=== PATIENT | female | born 1965 | race Caucasian/White ===

== ENCOUNTER → 2017-07-14 | Outpatient (CLI) | payer OTHER | END | disposition home or self-care (01) | LOC: RAD 12:14 | PROVIDERS: ATTEND Internal Medicine | DX: M23.221 Derangement of posterior horn of medial meniscus due to old tear or injury, right knee (principal); M25.461 Effusion, right knee; M71.21 Synovial cyst of popliteal space [Baker], right knee ==

== ENCOUNTER 2018-11-25 14:42 | Inpatient (IN) | payer OTHER ==
[~2018-11-25] VITALS: Ht 177.8 cm; Wt 116.5 kg
[2018-11-25] MEDS ORDERED: SODIUM CHLORIDE FLUSH 10ML SYR IVF ONE (15:00)
[2018-11-25] MEDS ORDERED: HYDROmorphone 1 MG/ML, 1ML VIAL ONE ×2 (15:30→17:36)
[2018-11-25] MEDS: HYDROmorphone 2 MG/ML, 1ML IVPush PRN ×2 (15:35→17:40)
[2018-11-25] MEDS ORDERED: LEVO200T5 PO (15:37)
[2018-11-25] MEDS ORDERED: LEVO25TA4 PO (15:38)
[2018-11-25] MEDS ORDERED: SERT50TA28 PO (15:39)
[2018-11-25] MEDS ORDERED: OXYC10TA6 PO (15:40)
[2018-11-25] MEDS ORDERED: IBUP-1484 PO (15:41)
[2018-11-25 15:47] LABS: BASOPHILS # (AUTO) 0.04 x10^3/uL (0-0.1); BASOPHILS % (AUTO) 0 % (0-1); EOSINOPHILS # (AUTO) 0.22 x10^3/uL (0-0.4); EOSINOPHILS % (AUTO) 2 % (1-7); LYMPHOCYTES # (AUTO) 2.19 x10^3/uL (1-3.4); LYMPHOCYTES % (AUTO) 15 % (22-44); MD NO; MEAN CORPUSCULAR HEMOGLOBIN 27.2 pg (27.0-34.8); MEAN CORPUSCULAR HGB CONC 33.3 g/dL (32.4-35.8); MEAN CORPUSCULAR VOLUME 81.7 fL (80-100); MEAN PLATELET VOLUME 9.8 fL (7.4-10.4); MONOCYTES # (AUTO) 0.97 x10^3/uL (0.2-0.8); MONOCYTES % (AUTO) 7 % (2-9); NEUTROPHILS # (AUTO) 10.93 x10^3/uL (1.8-6.8); NEUTROPHILS % (AUTO) 76 % (42-75); PLATELET COUNT 402 x10^3/uL (130-400); RED CELL DISTRIBUTION WIDTH 18.1 % (9.6-15.2)
[2018-11-25 15:56] LABS: ALANINE AMINOTRANSFERASE 16 U/L (12-78); ALBUMIN 3.5 g/dL (3.4-5.0); ANION GAP 7 mmol/L (5-15); CALCIUM 9.2 mg/dL (8.5-10.1); CHLORIDE 105 mmol/L (98-107); CREATININE 0.84 mg/dL (0.55-1.02)
[2018-11-25 15:58] LABS: ALKALINE PHOSPHATASE 95 U/L (45-117); BILIRUBIN,TOTAL 0.4 mg/dL (0.2-1.0); TOTAL PROTEIN 7.8 g/dL (6.4-8.2)
[2018-11-25 16:00] LABS: MICROSCOPIC INDICATED
[2018-11-25 16:06] LABS: CULTURE INDICATED? YES
[2018-11-25] MEDS ORDERED: AMPICILLIN/SULBACTAM 3 GM in SODIUM CHLORIDE 0.9% 100 ML IV ONE (16:30)
--- NOTE | 2018-11-25 19:00 | NUR ---
[facility] BEDSIDE HAND-OFF REPORT GIVEN TO NOAH RODRIGUEZ.
--- NOTE | 2018-11-25 19:01 | NUR ---
report received from clarita soliman.
--- NOTE | 2018-11-25 19:03 | NUR ---
ATTEMPTED TO CALL REPORT. NOC RN TO CALL BACK FOR REPORT.
--- NOTE | 2018-11-25 19:22 | NUR ---
report given to Brenden soliman. all questions answered.
[2018-11-25 19:37] VITALS: BP 122/79
[2018-11-25] MEDS ORDERED: ONDANSETRON 2MG/ML, 2ML IVPush PRN (20:00)
[2018-11-25] MEDS: SODIUM CHLORIDE 0.9% 1,000 ML IV SCH (20:06)
[2018-11-25] MEDS ORDERED: HYDROmorphone 1 MG/ML, 1ML INJ IV PRN ×2 (20:30)
[2018-11-25] MEDS: MEROPENEM 1 GM in SODIUM CHLORIDE 0.9% 100 ML IV SCH (20:53)
[2018-11-25] MEDS: ENOXAPARIN 40 MG/0.4 ML SQ SCH (20:57)
[2018-11-25] MEDS: HYDROmorphone 2 MG/ML, 1ML IV PRN (21:22)
[2018-11-26 00:02] VITALS: BP 106/69
[2018-11-26] MEDS: HYDROmorphone 2 MG/ML, 1ML IV PRN ×8 (00:35→23:49)
[2018-11-26] MEDS: SODIUM CHLORIDE 0.9% 1,000 ML IV SCH ×3 (03:30→19:46)
[2018-11-26] MEDS: MEROPENEM 1 GM in SODIUM CHLORIDE 0.9% 100 ML IV SCH ×3 (05:15→21:11)
[2018-11-26 05:49] LABS: BASOPHILS # (AUTO) 0.03 x10^3/uL (0-0.1); BASOPHILS % (AUTO) 0 % (0-1); CHLORIDE 111 mmol/L (98-107); EOSINOPHILS % (AUTO) 2 % (1-7); LYMPHOCYTES # (AUTO) 2.05 x10^3/uL (1-3.4); LYMPHOCYTES % (AUTO) 21 % (22-44); MD NO; MEAN CORPUSCULAR HEMOGLOBIN 26.6 pg (27.0-34.8); MEAN CORPUSCULAR HGB CONC 32.5 g/dL (32.4-35.8); MEAN CORPUSCULAR VOLUME 81.8 fL (80-100); MEAN PLATELET VOLUME 9.7 fL (7.4-10.4); MONOCYTES # (AUTO) 0.96 x10^3/uL (0.2-0.8); MONOCYTES % (AUTO) 10 % (2-9); NEUTROPHILS # (AUTO) 6.66 x10^3/uL (1.8-6.8); NEUTROPHILS % (AUTO) 67 % (42-75); PLATELET COUNT 324 x10^3/uL (130-400); RED BLOOD COUNT 4.49 x10^6/uL (3.82-5.3); RED CELL DISTRIBUTION WIDTH 17.5 % (9.6-15.2)
[2018-11-26 06:07] LABS: ALANINE AMINOTRANSFERASE 17 U/L (12-78); ALKALINE PHOSPHATASE 86 U/L (45-117); ANION GAP 8 mmol/L (5-15); BILIRUBIN,TOTAL 0.4 mg/dL (0.2-1.0); CALCIUM 8.7 mg/dL (8.5-10.1); CREATININE 0.52 mg/dL (0.55-1.02); TOTAL PROTEIN 6.5 g/dL (6.4-8.2)
[2018-11-26 07:10] VITALS: BP 127/78
[2018-11-26] MEDS: ENOXAPARIN 40 MG/0.4 ML SQ SCH ×2 (09:00→09:11)
[2018-11-26] MEDS: LEVOTHYROXINE 100 MCG INJ IVPush SCH (09:18)
[2018-11-26 14:00] VITALS: BP 124/76
[2018-11-26 18:59] VITALS: BP 106/71
[2018-11-27 00:28] VITALS: BP 129/86
[2018-11-27] MEDS: SODIUM CHLORIDE 0.9% 1,000 ML IV SCH ×2 (03:33→11:30)
[2018-11-27] MEDS: HYDROmorphone 2 MG/ML, 1ML IV PRN ×5 (04:29→20:04)
[2018-11-27] MEDS: MEROPENEM 1 GM in SODIUM CHLORIDE 0.9% 100 ML IV SCH ×3 (05:08→20:47)
[2018-11-27 08:21] VITALS: BP 136/88
[2018-11-27] MEDS: LEVOTHYROXINE 100 MCG INJ IVPush SCH (09:04)
[2018-11-27] MEDS: ENOXAPARIN 40 MG/0.4 ML SQ SCH (09:04)
[2018-11-27 13:39] VITALS: BP 117/77
[2018-11-27 19:57] VITALS: BP 128/84
[2018-11-28 00:34] VITALS: BP 142/97
[2018-11-28] MEDS: HYDROmorphone 2 MG/ML, 1ML IV PRN ×6 (00:34→21:21)
[2018-11-28] MEDS: MEROPENEM 1 GM in SODIUM CHLORIDE 0.9% 100 ML IV SCH ×3 (05:14→21:04)
[2018-11-28 06:01] LABS: BASOPHILS # (AUTO) 0.05 x10^3/uL (0-0.1); BASOPHILS % (AUTO) 1 % (0-1); EOSINOPHILS # (AUTO) 0.32 x10^3/uL (0-0.4); EOSINOPHILS % (AUTO) 3 % (1-7); LYMPHOCYTES # (AUTO) 2.11 x10^3/uL (1-3.4); LYMPHOCYTES % (AUTO) 22 % (22-44); MD NO; MEAN CORPUSCULAR HEMOGLOBIN 26.6 pg (27.0-34.8); MEAN CORPUSCULAR HGB CONC 32.7 g/dL (32.4-35.8); MEAN CORPUSCULAR VOLUME 81.3 fL (80-100); MEAN PLATELET VOLUME 9.7 fL (7.4-10.4); MONOCYTES # (AUTO) 0.79 x10^3/uL (0.2-0.8); MONOCYTES % (AUTO) 8 % (2-9); NEUTROPHILS # (AUTO) 6.25 x10^3/uL (1.8-6.8); NEUTROPHILS % (AUTO) 66 % (42-75); PLATELET COUNT 362 x10^3/uL (130-400); RED BLOOD COUNT 4.57 x10^6/uL (3.82-5.3); RED CELL DISTRIBUTION WIDTH 17.4 % (9.6-15.2)
[2018-11-28 06:34] VITALS: BP 123/86
[2018-11-28] MEDS: LEVOTHYROXINE 100 MCG INJ IVPush SCH (09:36)
[2018-11-28] MEDS: ENOXAPARIN 40 MG/0.4 ML SQ SCH (09:36)
[2018-11-28 14:00] VITALS: BP 130/77
[2018-11-28 18:36] VITALS: BP 136/92
[2018-11-29] MEDS: HYDROmorphone 2 MG/ML, 1ML IV PRN ×4 (00:55→14:28)
[2018-11-29 00:59] VITALS: BP 123/83
[2018-11-29] MEDS: MEROPENEM 1 GM in SODIUM CHLORIDE 0.9% 100 ML IV SCH ×2 (04:49→14:22)
[2018-11-29 07:07] VITALS: BP 125/78
[2018-11-29] MEDS: ENOXAPARIN 40 MG/0.4 ML SQ SCH (08:31)
[2018-11-29] MEDS: LEVOTHYROXINE 100 MCG INJ IVPush SCH (08:32)
[2018-11-29] MEDS ORDERED: OMNIPAQUE 350 MG/ML, 100ML BOTTLE ONE (10:33)
[2018-11-29 12:17] VITALS: BP 123/84
[2018-11-29] MEDS ORDERED: METR500T PO (16:17)
[2018-11-29] MEDS ORDERED: SULF1TAB24 PO (16:19)
== END 2018-11-29 16:30 | disposition home or self-care (01) | DRG 871 ==
LOC: ED 15:30 → EDIP 16:02 → 3NE 19:32 → DCLOUNGE 11-29 16:15
PROVIDERS: ADMIT Internal Medicine; ATTEND Internal Medicine
DX: A41.9 Sepsis, unspecified organism (principal); K65.1 Peritoneal abscess; E87.1 Hypo-osmolality and hyponatremia; K50.90 Crohn's disease, unspecified, without complications; E03.9 Hypothyroidism, unspecified; F17.200 Nicotine dependence, unspecified, uncomplicated; L40.50 Arthropathic psoriasis, unspecified; Z79.890 Hormone replacement therapy; Z90.49 Acquired absence of other specified parts of digestive tract
CPT/HCPCS: 36415; 74177; 80053; 81001; 83735; 84100; 85025; 87086; 96365; 96375; G0378; J0295; J1170; J1650; J2185; Q9967; J7030

== ENCOUNTER → 2018-11-25 | Outpatient (CLI) | payer OTHER ==
[~2018-11-25] MED LIST: IBUP-1484 PO; LEVO200T5 PO; LEVO25TA4 PO; METR500T PO; OXYC10TA6 PO; SERT50TA28 PO; SULF1TAB24 PO
== END | disposition home or self-care (01) ==
LOC: CFH 12:21
PROVIDERS: ATTEND Internal Medicine
DX: G89.18 Other acute postprocedural pain (principal)
CPT/HCPCS: 74176

== ENCOUNTER 2020-02-15 13:33 | Emergency (ER) | payer OTHER ==
[~2020-02-15] VITALS: Ht 180.3 cm; Wt 116.0 kg
[~2020-02-15 13:33] MED LIST changes: -IBUP-1484 PO; +IBUP-1902 PO
--- NOTE | 2020-02-15 13:51 | NUR ---
PT BIB [facility], PT WITH C/O 05/19 DIFFUSE ABD PAIN AND DIARRHEA SINCE 299 THIS AM. PT WITH HX CHRONS AND COLITITS. DENIES N/V
--- NOTE | 2020-02-15 14:24 | NUR ---
TASK RN: IVF HUNG. PT RESTING IN BED IN NAD, TEARFUL SECONDARY TO 8/10 ABDOMINAL 'CRAMPING'. ERP AWARE. AWAITING ORDERS
[2020-02-15] MEDS ORDERED: SODIUM CHLORIDE 0.9% 1,000ML IVBOLUS ONE (14:30)
[2020-02-15] MEDS ORDERED: SODIUM CHLORIDE FLUSH 10ML SYR IVF ONE (14:30)
[2020-02-15 14:45] LABS: BASOPHILS # (AUTO) 0.03 x10^3/uL (0-0.1); BASOPHILS % (AUTO) 0 % (0-1); EOSINOPHILS # (AUTO) 0.06 x10^3/uL (0-0.4); EOSINOPHILS % (AUTO) 0 % (1-7); LYMPHOCYTES # (AUTO) 0.58 x10^3/uL (1-3.4); LYMPHOCYTES % (AUTO) 4 % (22-44); MD NO; MEAN CORPUSCULAR HEMOGLOBIN 26.9 pg (27.0-34.8); MEAN CORPUSCULAR HGB CONC 31.9 g/dL (32.4-35.8); MEAN CORPUSCULAR VOLUME 84.3 fL (80-100); MEAN PLATELET VOLUME 9.2 fL (7.4-10.4); MONOCYTES # (AUTO) 0.47 x10^3/uL (0.2-0.8); MONOCYTES % (AUTO) 3 % (2-9); NEUTROPHILS # (AUTO) 14.74 x10^3/uL (1.8-6.8); NEUTROPHILS % (AUTO) 93 % (42-75); PLATELET COUNT 392 x10^3/uL (130-400); RED BLOOD COUNT 5.05 x10^6/uL (3.82-5.3); RED CELL DISTRIBUTION WIDTH 16.9 % (9.6-15.2)
[2020-02-15 14:54] LABS: ALANINE AMINOTRANSFERASE 38 U/L (12-78); ALBUMIN 3.2 g/dL (3.4-5.0); ANION GAP 6 mmol/L (5-15); CALCIUM 8.8 mg/dL (8.5-10.1); CHLORIDE 112 mmol/L (98-107); CREATININE 0.73 mg/dL (0.55-1.02)
[2020-02-15 14:56] LABS: ALKALINE PHOSPHATASE 114 U/L (45-117); BILIRUBIN,TOTAL 0.5 mg/dL (0.2-1.0); TOTAL PROTEIN 7.6 g/dL (6.4-8.2)
[2020-02-15] MEDS ORDERED: HYDROmorphone 1 MG/ML, 1ML INJ IV ONE (15:00)
[2020-02-15] MEDS ORDERED: HYDROmorphone 2 MG/ML, 1ML ONE (15:01)
--- NOTE | 2020-02-15 15:08 | NUR ---
ORDER RECIEVED FOR DILAUDED PER PT REQUEST, PT MEDICATED PER MAR, VSS
[2020-02-15 15:29] LABS: MICROSCOPIC NOT IND
[2020-02-15] MEDS ORDERED: OMNIPAQUE 350 MG/ML, 100ML BOTTLE ONE (15:33)
--- NOTE | 2020-02-15 15:36 | NUR ---
PT BACK FROM CT AT THIS TIME
[2020-02-15 16:06] LABS: CLOSTRIDIUM DIFFICILE ANTIGEN NEGATIVE; CLOSTRIDIUM DIFFICILE TOXIN NEGATIVE (Negative)
--- NOTE | 2020-02-15 17:13 | NUR ---
PT UP TO BR AT THIS TIME, PT WITH STEADY GAIT
[2020-02-15 18:02] VITALS: BP 121/83
== END 2020-02-15 18:40 | disposition home or self-care (01) ==
LOC: ED 13:49
DX: K50.10 Crohn's disease of large intestine without complications (principal); D72.829 Elevated white blood cell count, unspecified; R10.84 Generalized abdominal pain; I10 Essential (primary) hypertension; Z90.49 Acquired absence of other specified parts of digestive tract
CPT/HCPCS: 36415; 74177; 80053; 81003; 83605; 83690; 85025; 87324; 89055; 93005; 96374; 99285; J1170; J7030; Q9967

== ENCOUNTER 2021-01-27 02:18 | Inpatient (IN) | payer MEDICAID, OTHER ==
[~2021-01-27] VITALS: Ht 180.3 cm; Wt 128.5 kg
[~2021-01-27 02:18] MED LIST changes: +SULF-23 PO; -SULF1TAB24 PO
[2021-01-27] MEDS ORDERED: HYDROmorphone 1 MG/ML, 1ML INJ IV ONE (04:00)
[2021-01-27] MEDS ORDERED: ONDANSETRON 2MG/ML, 2ML IVPush ONE (04:00)
[2021-01-27] MEDS ORDERED: SODIUM CHLORIDE FLUSH 10ML SYR IVF ONE ×2 (04:00)
[2021-01-27] MEDS ORDERED: ONDANSETRON 2MG/ML, 2ML ONE (04:08)
[2021-01-27] MEDS ORDERED: HYDROmorphone 1 MG/ML, 1ML INJ ONE ×2 (04:08→06:21)
--- NOTE | 2021-01-27 04:15 | NUR ---
PT PRESENTS TO THE ED WITH PAIN IN PINKY TOE. PT HAS HAD THIS PAIN FOR SOME TIME, AND IS TO SEE A VASCULAR SURGERON, BUT HAS NOT SEEN THEM YET. PT NEEDS MRI FOR TOE. PT PLACED IN GOWN AND ON CONTINUOUS MONITORING, 20 G IV TO RIGHT AC, ERP AT BEDSIDE.
--- NOTE | 2021-01-27 04:15 | NUR ---
PAIN MEDS GIVEN, PT RESTING ON GURNEY, DENIES NEEDS AT THIS TIME.
[2021-01-27 04:18] LABS: BASOPHILS % (AUTO) 1 % (0-1); EOSINOPHILS % (AUTO) 1 % (1-7); LYMPHOCYTES % (AUTO) 26 % (22-44); MEAN CORPUSCULAR HEMOGLOBIN 28.6 pg (27.0-34.8); MEAN CORPUSCULAR HGB CONC 33.6 g/dL (32.4-35.8); MEAN PLATELET VOLUME 9.4 fL (7.4-10.4); MONOCYTES % (AUTO) 9 % (2-9); NEUTROPHILS % (AUTO) 62 % (42-75); PLATELET COUNT 322 x10^3/uL (130-400); RED BLOOD COUNT 4.76 x10^6/uL (3.82-5.3); RED CELL DISTRIBUTION WIDTH 16.6 % (9.6-15.2)
[2021-01-27 04:30] LABS: ALANINE AMINOTRANSFERASE 19 U/L (12-78); ALBUMIN 3.4 g/dL (3.4-5.0); ANION GAP 9 mmol/L (5-15); CALCIUM 9.1 mg/dL (8.5-10.1); CHLORIDE 105 mmol/L (98-107); CREATININE 0.78 mg/dL (0.55-1.02)
[2021-01-27 04:32] LABS: ALKALINE PHOSPHATASE 98 U/L (45-117); BILIRUBIN,TOTAL 0.3 mg/dL (0.2-1.0); TOTAL PROTEIN 7.5 g/dL (6.4-8.2)
--- NOTE | 2021-01-27 05:20 | NUR ---
PT UP TO BATHROOM
--- NOTE | 2021-01-27 05:22 | NUR ---
PT BACK TO ROOM, STEADY GAIT
[2021-01-27] MEDS ORDERED: LOSA100T14 PO (05:41)
[2021-01-27] MEDS ORDERED: OMEP-110 PO (05:41)
--- NOTE | 2021-01-27 05:47 | NUR ---
PT THINKING ABOUT STAY INPATIENT TO HAVE MRI AND PAIN MANAGEMENT
[2021-01-27] MEDS ORDERED: HYDROmorphone 2 MG/ML, 1ML IVPush PRN (06:30)
--- NOTE | 2021-01-27 07:04 | NUR ---
Pt to be admitted to MEDICAL, room 338. Report called to NOAH HAWKINS.
[2021-01-27] MEDS ORDERED: BISACODYL 10 MG SUPP PR PRN (08:30)
[2021-01-27] MEDS ORDERED: ACETAMINOPHEN 325 MG TABLET PO PRN (08:30)
[2021-01-27] MEDS ORDERED: ONDANSETRON ODT 4 MG PO PRN (08:30)
[2021-01-27] MEDS ORDERED: hydrALAzine 20 MG/ML, 1ML IVPush PRN (08:30)
[2021-01-27] MEDS ORDERED: ONDANSETRON 2MG/ML, 2ML IVPush PRN (08:30)
[2021-01-27] MEDS ORDERED: PROMETHAZINE 25 MG/ML, 1ML IM PRN (08:30)
[2021-01-27] MEDS ORDERED: morphine SULFATE 10 MG/ML, 1ML IVPush PRN (08:30)
[2021-01-27] MEDS ORDERED: DOCUSATE 100 MG CAPSULE PO PRN (08:30)
[2021-01-27] MEDS ORDERED: POLYETHYLENE GLYCOL 17 GM PACKET PO PRN (08:30)
[2021-01-27 08:33] VITALS: BP 151/96
[2021-01-27] MEDS: HEPARIN 5,000 UNITS/ML, 1ML SQ SCH ×2 (08:53→17:24)
[2021-01-27] MEDS: OXYcodone IR 5MG TABLET PO PRN (10:17)
[2021-01-27] MEDS: SODIUM CHLORIDE 0.9% 1,000 ML IV SCH (11:56)
[2021-01-27] MEDS ORDERED: ZOLPIDEM 5MG TABLET PO PRN (12:30)
[2021-01-27 13:15] VITALS: BP 113/73
[2021-01-27] MEDS: HYDROmorphone 2 MG/ML, 1ML IVPush PRN ×3 (13:24→20:30)
[2021-01-27] MEDS ORDERED: GADOTERATE 7.5 MMOL/15ML SYR ONE (15:46)
[2021-01-27] MEDS ORDERED: GADOTERATE 5 MMOL/10ML SYR ONE (15:46)
[2021-01-27 19:13] VITALS: BP 107/71
[2021-01-28] MEDS: HYDROmorphone 2 MG/ML, 1ML IVPush PRN ×7 (00:10→21:30)
[2021-01-28] MEDS: HEPARIN 5,000 UNITS/ML, 1ML SQ SCH ×3 (00:22→16:15)
[2021-01-28 00:33] VITALS: BP 123/82
[2021-01-28] MEDS: SODIUM CHLORIDE 0.9% 1,000 ML IV SCH (01:00)
[2021-01-28 05:36] LABS: BASOPHILS % (AUTO) 1 % (0-1); EOSINOPHILS % (AUTO) 2 % (1-7); LYMPHOCYTES % (AUTO) 28 % (22-44); MEAN CORPUSCULAR HEMOGLOBIN 28.7 pg (27.0-34.8); MEAN PLATELET VOLUME 9.4 fL (7.4-10.4); MONOCYTES % (AUTO) 8 % (2-9); NEUTROPHILS % (AUTO) 61 % (42-75); PLATELET COUNT 293 x10^3/uL (130-400); RED BLOOD COUNT 4.39 x10^6/uL (3.82-5.3); RED CELL DISTRIBUTION WIDTH 16.2 % (9.6-15.2)
[2021-01-28 05:46] LABS: CHLORIDE 109 mmol/L (98-107)
[2021-01-28] MEDS: LEVOTHYROXINE 25 MCG TABLET PO SCH (05:49)
[2021-01-28] MEDS: LEVOTHYROXINE 200 MCG TABLET PO SCH (05:49)
[2021-01-28 06:02] LABS: ALANINE AMINOTRANSFERASE 16 U/L (12-78); ALBUMIN 2.9 g/dL (3.4-5.0); ALKALINE PHOSPHATASE 83 U/L (45-117); ANION GAP 6 mmol/L (5-15); BILIRUBIN,TOTAL 0.2 mg/dL (0.2-1.0); CALCIUM 8.6 mg/dL (8.5-10.1); CHOL/HDL RATIO 4.1; CHOLESTEROL, TOTAL 157 mg/dL (140-239); CREATININE 0.63 mg/dL (0.55-1.02); HDL CHOL % 24 % (28-40); HDL CHOLESTEROL (DIRECT) 38 mg/dL (40-60); LDL CHOLESTEROL,CALCULATED 89 mg/dL (54-169); LDL/HDL RATIO 2.3 (0.5-3.0); TOTAL PROTEIN 6.6 g/dL (6.4-8.2); TRIGLYCERIDES 152 mg/dL (50-200); VLDL CHOLESTEROL 30 mg/dL (0-25)
[2021-01-28 06:50] VITALS: BP 149/90
[2021-01-28] MEDS: LOSARTAN 100 MG TAB PO SCH (08:13)
[2021-01-28] MEDS: OMEPRAZOLE 20 MG CAPSULE.DR PO SCH (08:13)
[2021-01-28] MEDS: SERTRALINE 50MG TABLET PO SCH (08:13)
[2021-01-28 13:21] VITALS: BP 115/72
[2021-01-28] MEDS ORDERED: OMNIPAQUE 350 MG/ML, 150 ML BOTTLE ONE (18:01)
[2021-01-28 18:52] VITALS: BP 105/75
[2021-01-28] MEDS: OXYcodone IR 5MG TABLET PO PRN (23:41)
[2021-01-29] MEDS: HYDROmorphone 2 MG/ML, 1ML IVPush PRN ×6 (00:36→19:12)
[2021-01-29] MEDS: HEPARIN 5,000 UNITS/ML, 1ML SQ SCH ×3 (00:36→16:06)
[2021-01-29 01:07] VITALS: BP 108/74
[2021-01-29] MEDS: LEVOTHYROXINE 200 MCG TABLET PO SCH (05:10)
[2021-01-29] MEDS: LEVOTHYROXINE 25 MCG TABLET PO SCH (05:11)
[2021-01-29 07:05] VITALS: BP 114/77
[2021-01-29] MEDS: OMEPRAZOLE 20 MG CAPSULE.DR PO SCH (08:07)
[2021-01-29] MEDS: LOSARTAN 100 MG TAB PO SCH (08:07)
[2021-01-29] MEDS: SERTRALINE 50MG TABLET PO SCH (08:07)
[2021-01-29 13:21] VITALS: BP 105/68
[2021-01-29 19:03] VITALS: BP 100/68
[2021-01-29] MEDS: OXYcodone IR 5MG TABLET PO PRN (21:33)
[2021-01-30] MEDS: HYDROmorphone 2 MG/ML, 1ML IVPush PRN ×6 (00:12→20:34)
[2021-01-30] MEDS: HEPARIN 5,000 UNITS/ML, 1ML SQ SCH ×3 (00:12→17:15)
[2021-01-30 00:28] VITALS: BP 121/85
[2021-01-30 05:18] LABS: BASOPHILS % (AUTO) 1 % (0-1); EOSINOPHILS % (AUTO) 2 % (1-7); LYMPHOCYTES % (AUTO) 29 % (22-44); MEAN CORPUSCULAR HEMOGLOBIN 28.4 pg (27.0-34.8); MEAN CORPUSCULAR HGB CONC 32.9 g/dL (32.4-35.8); MEAN PLATELET VOLUME 9.6 fL (7.4-10.4); MONOCYTES % (AUTO) 7 % (2-9); NEUTROPHILS % (AUTO) 61 % (42-75); PLATELET COUNT 337 x10^3/uL (130-400); RED BLOOD COUNT 4.66 x10^6/uL (3.82-5.3); RED CELL DISTRIBUTION WIDTH 16.4 % (9.6-15.2)
[2021-01-30 05:25] LABS: ALBUMIN 3.2 g/dL (3.4-5.0); ANION GAP 7 mmol/L (5-15); CALCIUM 9.5 mg/dL (8.5-10.1); CHLORIDE 105 mmol/L (98-107)
[2021-01-30] MEDS: LEVOTHYROXINE 200 MCG TABLET PO SCH (05:27)
[2021-01-30] MEDS: LEVOTHYROXINE 25 MCG TABLET PO SCH (05:27)
[2021-01-30 05:30] LABS: ALANINE AMINOTRANSFERASE 21 U/L (12-78); ALKALINE PHOSPHATASE 89 U/L (45-117); BILIRUBIN,TOTAL 0.3 mg/dL (0.2-1.0); CREATININE 0.87 mg/dL (0.55-1.02); TOTAL PROTEIN 7.2 g/dL (6.4-8.2)
[2021-01-30 05:47] LABS: HCT (SEDRATE) 40.2 % (34.6-47.8)
[2021-01-30 06:36] VITALS: BP 131/77
[2021-01-30] MEDS: OMEPRAZOLE 20 MG CAPSULE.DR PO SCH (08:55)
[2021-01-30] MEDS: SERTRALINE 50MG TABLET PO SCH (08:55)
[2021-01-30] MEDS: LOSARTAN 100 MG TAB PO SCH (09:00)
[2021-01-30] MEDS: OXYcodone IR 5MG TABLET PO PRN ×3 (09:54→18:46)
[2021-01-30 13:14] VITALS: BP 101/68
[2021-01-30] MEDS: [UNRECOGNIZED DRUG - OTHER] OTIC SCH ×3 (14:19→23:31)
[2021-01-30 18:30] VITALS: BP 118/79
[2021-01-31 00:14] VITALS: BP 93/56
[2021-01-31] MEDS: HEPARIN 5,000 UNITS/ML, 1ML SQ SCH ×2 (00:19→09:19)
[2021-01-31] MEDS: HYDROmorphone 2 MG/ML, 1ML IVPush PRN ×4 (00:19→13:49)
[2021-01-31] MEDS: LEVOTHYROXINE 200 MCG TABLET PO SCH (05:18)
[2021-01-31] MEDS: LEVOTHYROXINE 25 MCG TABLET PO SCH (05:18)
[2021-01-31] MEDS: [UNRECOGNIZED DRUG - OTHER] OTIC SCH ×2 (05:18→11:34)
[2021-01-31 09:14] VITALS: BP 121/81
[2021-01-31] MEDS: OMEPRAZOLE 20 MG CAPSULE.DR PO SCH (09:16)
[2021-01-31] MEDS: SERTRALINE 50MG TABLET PO SCH (09:16)
[2021-01-31] MEDS: LOSARTAN 100 MG TAB PO SCH (09:16)
[2021-01-31 13:47] VITALS: BP 107/74
== END 2021-01-31 16:22 | disposition home or self-care (01) | DRG 300 ==
LOC: ED 06:59 → 3N 07:39 → EDIP 12:19 → ED 12:19 → 3N 12:43
PROVIDERS: ADMIT Internal Medicine; ATTEND Internal Medicine
DX: I70.221 Atherosclerosis of native arteries of extremities with rest pain, right leg (principal); K51.80 Other ulcerative colitis without complications; I10 Essential (primary) hypertension; E03.9 Hypothyroidism, unspecified; G89.29 Other chronic pain; M54.9 Dorsalgia, unspecified; Z90.49 Acquired absence of other specified parts of digestive tract; Z88.8 Allergy status to other drugs, medicaments and biological substances; Z79.899 Other long term (current) drug therapy
CPT/HCPCS: 36415; 71275; 75635; 80053; 80061; 83036; 83735; 84100; 84443; 85025; 85651; 93005; 93306; 93356; 93922; G0378; J1170; J1644; J2405; Q9967; A9575; J2270; J7030

== ENCOUNTER 2021-02-06 08:30 | Outpatient (CLI) | payer MEDICAID ==
[~2021-02-06 08:30] MED LIST changes: +LOSA100T14 PO; +OMEP-110 PO
== END 2021-02-06 23:59 | disposition home or self-care (01) ==
LOC: WOUND 08:30
PROVIDERS: ATTEND Internal Medicine
DX: I70.235 Atherosclerosis of native arteries of right leg with ulceration of other part of foot (principal); L97.512 Non-pressure chronic ulcer of other part of right foot with fat layer exposed; I10 Essential (primary) hypertension; E03.9 Hypothyroidism, unspecified; D84.9 Immunodeficiency, unspecified; I96 Gangrene, not elsewhere classified; K50.00 Crohn's disease of small intestine without complications; L40.50 Arthropathic psoriasis, unspecified; G89.29 Other chronic pain; M79.674 Pain in right toe(s); L40.0 Psoriasis vulgaris; F17.210 Nicotine dependence, cigarettes, uncomplicated; Z79.899 Other long term (current) drug therapy; Z90.49 Acquired absence of other specified parts of digestive tract; Z88.8 Allergy status to other drugs, medicaments and biological substances
CPT/HCPCS: 99215

== ENCOUNTER 2021-02-13 10:33 | Outpatient (CLI) | payer MEDICAID | END 2021-02-13 23:59 | disposition home or self-care (01) | LOC: WOUND 10:33 | PROVIDERS: ATTEND Internal Medicine | DX: I70.235 Atherosclerosis of native arteries of right leg with ulceration of other part of foot (principal); I70.261 Atherosclerosis of native arteries of extremities with gangrene, right leg; L97.512 Non-pressure chronic ulcer of other part of right foot with fat layer exposed; I10 Essential (primary) hypertension; E03.9 Hypothyroidism, unspecified; D84.9 Immunodeficiency, unspecified; K50.00 Crohn's disease of small intestine without complications; L40.50 Arthropathic psoriasis, unspecified; G89.29 Other chronic pain; L40.0 Psoriasis vulgaris; F17.210 Nicotine dependence, cigarettes, uncomplicated; Z79.899 Other long term (current) drug therapy; Z90.49 Acquired absence of other specified parts of digestive tract; Z88.8 Allergy status to other drugs, medicaments and biological substances | CPT/HCPCS: 99213 ==

== ENCOUNTER 2021-02-20 10:47 | Outpatient (CLI) | payer MEDICAID | END 2021-02-20 23:59 | disposition home or self-care (01) | LOC: WOUND 10:47 | PROVIDERS: ATTEND Internal Medicine | DX: I70.235 Atherosclerosis of native arteries of right leg with ulceration of other part of foot (principal); I70.261 Atherosclerosis of native arteries of extremities with gangrene, right leg; L97.512 Non-pressure chronic ulcer of other part of right foot with fat layer exposed; I10 Essential (primary) hypertension; E03.9 Hypothyroidism, unspecified; D84.9 Immunodeficiency, unspecified; K50.00 Crohn's disease of small intestine without complications; L40.50 Arthropathic psoriasis, unspecified; G89.29 Other chronic pain; L40.0 Psoriasis vulgaris; F17.210 Nicotine dependence, cigarettes, uncomplicated; Z79.899 Other long term (current) drug therapy; Z90.49 Acquired absence of other specified parts of digestive tract; Z88.8 Allergy status to other drugs, medicaments and biological substances | CPT/HCPCS: 87070; 87077; 87186; 87205; 99213 ==

== ENCOUNTER 2021-03-04 14:22 | Outpatient (CLI) | payer MEDICAID | END 2021-03-04 23:59 | disposition home or self-care (01) | LOC: WOUND 14:22 | PROVIDERS: ATTEND Internal Medicine | DX: I70.235 Atherosclerosis of native arteries of right leg with ulceration of other part of foot (principal); L97.512 Non-pressure chronic ulcer of other part of right foot with fat layer exposed; I10 Essential (primary) hypertension; E03.9 Hypothyroidism, unspecified; D84.9 Immunodeficiency, unspecified; I96 Gangrene, not elsewhere classified; K50.00 Crohn's disease of small intestine without complications; L40.50 Arthropathic psoriasis, unspecified; G89.29 Other chronic pain; L40.0 Psoriasis vulgaris; F17.210 Nicotine dependence, cigarettes, uncomplicated; Z79.899 Other long term (current) drug therapy; Z90.49 Acquired absence of other specified parts of digestive tract; Z88.8 Allergy status to other drugs, medicaments and biological substances | CPT/HCPCS: 99213 ==

== ENCOUNTER 2021-03-29 08:15 | Outpatient (CLI) | payer MEDICAID | END 2021-03-29 23:59 | disposition home or self-care (01) | LOC: WOUND 08:15 | PROVIDERS: ATTEND Internal Medicine | DX: I70.235 Atherosclerosis of native arteries of right leg with ulceration of other part of foot (principal); I70.261 Atherosclerosis of native arteries of extremities with gangrene, right leg; L97.512 Non-pressure chronic ulcer of other part of right foot with fat layer exposed; I10 Essential (primary) hypertension; E03.9 Hypothyroidism, unspecified; D84.9 Immunodeficiency, unspecified; K50.00 Crohn's disease of small intestine without complications; L40.50 Arthropathic psoriasis, unspecified; G89.29 Other chronic pain; L40.0 Psoriasis vulgaris; F17.210 Nicotine dependence, cigarettes, uncomplicated; Z79.899 Other long term (current) drug therapy; Z90.49 Acquired absence of other specified parts of digestive tract; Z88.8 Allergy status to other drugs, medicaments and biological substances | CPT/HCPCS: 97597 ==